=== PATIENT | male | born 1935 | race Two or more races ===

== ENCOUNTER 2016-11-14 02:18 | Inpatient (IN) | payer OTHER ==
[2016-11-14 04:15] VITALS: BP 137/62
[2016-11-14] MEDS ORDERED: BENA20TA2 PO (04:37)
[2016-11-14] MEDS ORDERED: TRAM50TA2 PO (04:37)
[2016-11-14] MEDS ORDERED: TAMS0.4C34 PO (04:37)
[2016-11-14 08:00] VITALS: BP 126/52
[2016-11-14] MEDS ORDERED: Z GUARD REMEDY 2 OZ OINT TP PRN (09:30)
[2016-11-14 10:59] LABS: BASOPHILS % (AUTO) 0.5 % (0.0-2.0); DIFF TOTAL % 100 %; EOSINOPHILS # (AUTO) 0.5 /CMM (0.0-0.7); EOSINOPHILS % (AUTO) 8.2 % (0.0-6.0); HEMATOCRIT 30 % (39-51); HEMOGLOBIN 9.9 g/dL (13.5-17.5); LYMPHOCYTES # (AUTO) 1.5 /CMM (0.8-4.8); LYMPHOCYTES % (AUTO) 27.2 % (20.0-44.0); MEAN CORPUSCULAR HEMOGLOBIN 30 PG (26.0-33.0); MEAN CORPUSCULAR HGB CONC 33 g/dl (31.0-36.0); MEAN CORPUSCULAR VOLUME 91 fL (80-96); MONOCYTES # (AUTO) 0.5 /CMM (0.1-1.30); MONOCYTES % (AUTO) 9.8 % (2.0-12.0); NEUTROPHILS % (AUTO) 54.3 % (43.0-81.0); PLATELET COUNT (AUTO) 219 /CMM (150-450); RED BLOOD CELL COUNT(AUTO) 3.27 MIL/uL (4.5-6.0); WHITE BLOOD COUNT (AUTO) 5.6 K/uL (4.3-11.0)
[2016-11-14 11:07] LABS: CALCIUM, SERUM 8.4 mg/dL (8.5-10.1); CREATININE 0.9 mg/dL (0.6-1.3); POTASSIUM 3.8 mmol/L (3.5-5.1)
[2016-11-14] MEDS: TAMSULOSIN 0.4 MG CAP.SR.24H PO SCH (11:56)
[2016-11-14] MEDS: BENAZEPRIL HCL 20 MG TABLET PO SCH (11:57)
[2016-11-14] MEDS: NEOMY SULF/BACITRAC ZN/POLY 15 GM TUBE TP SCH (11:57)
[2016-11-14] MEDS: Z GUARD REMEDY 2 OZ OINT TP SCH ×2 (11:57→18:01)
[2016-11-14] MEDS: TRAMADOL HCL 50 MG TABLET PO SCH ×2 (13:00→17:00)
[2016-11-14 16:00] VITALS: BP 114/61
[2016-11-14 19:57] VITALS: BP 123/44
[2016-11-14 20:00] VITALS: BP 123/44
[2016-11-15 04:00] VITALS: BP 118/77
[2016-11-15] MEDS: TRAMADOL HCL 50 MG TABLET PO SCH ×3 (08:51→18:09)
[2016-11-15] MEDS: TAMSULOSIN 0.4 MG CAP.SR.24H PO SCH (08:51)
[2016-11-15] MEDS: BENAZEPRIL HCL 20 MG TABLET PO SCH (08:51)
[2016-11-15 09:00] VITALS: BP 136/43
[2016-11-15] MEDS: NEOMY SULF/BACITRAC ZN/POLY 15 GM TUBE TP SCH (09:00)
[2016-11-15] MEDS: Z GUARD REMEDY 2 OZ OINT TP SCH ×2 (09:00→17:00)
[2016-11-15] MEDS: FUROSEMIDE 40 MG/4 ML VIAL IV SCH ×2 (13:46→18:09)
[2016-11-15 16:00] VITALS: BP 129/47
[2016-11-15 20:00] VITALS: BP 110/88
[2016-11-16 04:00] VITALS: BP 131/51
[2016-11-16 08:00] VITALS: BP 126/71
[2016-11-16] MEDS: NEOMY SULF/BACITRAC ZN/POLY 15 GM TUBE TP SCH (09:18)
[2016-11-16] MEDS: Z GUARD REMEDY 2 OZ OINT TP SCH ×2 (09:19→16:56)
[2016-11-16] MEDS: TAMSULOSIN 0.4 MG CAP.SR.24H PO SCH (09:33)
[2016-11-16] MEDS: FUROSEMIDE 40 MG/4 ML VIAL IV SCH ×2 (09:33→17:32)
[2016-11-16] MEDS: TRAMADOL HCL 50 MG TABLET PO SCH ×3 (09:33→17:32)
[2016-11-16] MEDS: BENAZEPRIL HCL 20 MG TABLET PO SCH (09:33)
[2016-11-16 12:44] LABS: BASOPHILS # (AUTO) 0.1 /CMM (0.0-0.2); BASOPHILS % (AUTO) 0.9 % (0.0-2.0); DIFF TOTAL % 100 %; EOSINOPHILS # (AUTO) 0.7 /CMM (0.0-0.7); EOSINOPHILS % (AUTO) 11.4 % (0.0-6.0); HEMATOCRIT 33 % (39-51); HEMOGLOBIN 10.9 g/dL (13.5-17.5); LYMPHOCYTES # (AUTO) 1.8 /CMM (0.8-4.8); LYMPHOCYTES % (AUTO) 31.3 % (20.0-44.0); MEAN CORPUSCULAR HEMOGLOBIN 30 PG (26.0-33.0); MEAN CORPUSCULAR HGB CONC 33 g/dl (31.0-36.0); MEAN CORPUSCULAR VOLUME 92 fL (80-96); MONOCYTES # (AUTO) 0.6 /CMM (0.1-1.30); MONOCYTES % (AUTO) 10.3 % (2.0-12.0); NEUTROPHILS # (AUTO) 2.7 /CMM (1.8-8.9); NEUTROPHILS % (AUTO) 46.1 % (43.0-81.0); PLATELET COUNT (AUTO) 227 /CMM (150-450); RED BLOOD CELL COUNT(AUTO) 3.59 MIL/uL (4.5-6.0); WHITE BLOOD COUNT (AUTO) 5.9 K/uL (4.3-11.0)
[2016-11-16 13:04] LABS: ALBUMIN 3.2 g/dL (3.4-5.0); BILIRUBIN,TOTAL 0.4 mg/dL (0.2-1.0); CALCIUM, SERUM 8.8 mg/dL (8.5-10.1); CREATININE 0.9 mg/dL (0.6-1.3); POTASSIUM 3.9 mmol/L (3.5-5.1); TOTAL PROTEIN, SERUM 6.8 g/dL (6.4-8.2)
[2016-11-16 16:00] VITALS: BP 132/52
[2016-11-16 20:00] VITALS: BP 119/53
[2016-11-17 07:42] LABS: CALCIUM, SERUM 8.6 mg/dL (8.5-10.1)
[2016-11-17 07:47] LABS: BASOPHILS % (AUTO) 0.6 % (0.0-2.0); DIFF TOTAL % 100 %; EOSINOPHILS # (AUTO) 0.6 /CMM (0.0-0.7); EOSINOPHILS % (AUTO) 10.9 % (0.0-6.0); HEMATOCRIT 31 % (39-51); HEMOGLOBIN 10.1 g/dL (13.5-17.5); LYMPHOCYTES # (AUTO) 1.8 /CMM (0.8-4.8); MEAN CORPUSCULAR HEMOGLOBIN 30 PG (26.0-33.0); MEAN CORPUSCULAR HGB CONC 33 g/dl (31.0-36.0); MEAN CORPUSCULAR VOLUME 92 fL (80-96); MONOCYTES # (AUTO) 0.5 /CMM (0.1-1.30); NEUTROPHILS # (AUTO) 2.8 /CMM (1.8-8.9); NEUTROPHILS % (AUTO) 48.5 % (43.0-81.0); PLATELET COUNT (AUTO) 223 /CMM (150-450); RED BLOOD CELL COUNT(AUTO) 3.37 MIL/uL (4.5-6.0); WHITE BLOOD COUNT (AUTO) 5.8 K/uL (4.3-11.0)
[2016-11-17 08:00] VITALS: BP 127/48
[2016-11-17 08:03] VITALS: BP 127/48
[2016-11-17] MEDS: NEOMY SULF/BACITRAC ZN/POLY 15 GM TUBE TP SCH (08:03)
[2016-11-17] MEDS: TRAMADOL HCL 50 MG TABLET PO SCH ×2 (08:03→12:41)
[2016-11-17] MEDS: BENAZEPRIL HCL 20 MG TABLET PO SCH (08:03)
[2016-11-17] MEDS: Z GUARD REMEDY 2 OZ OINT TP SCH (08:03)
[2016-11-17] MEDS: FUROSEMIDE 40 MG/4 ML VIAL IV SCH (08:03)
[2016-11-17] MEDS: TAMSULOSIN 0.4 MG CAP.SR.24H PO SCH (08:03)
[2016-11-17] MEDS ORDERED: PNEUMOCOCCAL 23-VAL P-SAC VAC 0.5 ML VIAL SQ ONE (12:30)
== END 2016-11-17 16:33 | disposition home or self-care (01) | DRG 291 ==
LOC: TELE1 04:07 → MEDSG1 06:40
PROVIDERS: ADMIT Internal Medicine; ATTEND Internal Medicine
DX: I11.0 Hypertensive heart disease with heart failure (principal); N17.0 Acute kidney failure with tubular necrosis; I50.31 Acute diastolic (congestive) heart failure; R60.1 Generalized edema; D72.1 Eosinophilia; E78.5 Hyperlipidemia, unspecified; M75.52 Bursitis of left shoulder; D64.9 Anemia, unspecified; I34.0 Nonrheumatic mitral (valve) insufficiency; M19.012 Primary osteoarthritis, left shoulder; M75.102 Unspecified rotator cuff tear or rupture of left shoulder, not specified as traumatic; X58.XXXA Exposure to other specified factors, initial encounter; Y93.9 Activity, unspecified; Y92.009 Unspecified place in unspecified non-institutional (private) residence as the place of occurrence of the external cause; R10.9 Unspecified abdominal pain
CPT/HCPCS: 36415; 73200-TC; 80048-TC; 80053-TC; 83735-TC; 83880; 85025-TC; 87081-TC; 90732; 93307-TC; A6402; J1940; Z7610